=== PATIENT | female | born 1980 | race Caucasian/White ===

== ENCOUNTER 2019-12-07 20:29 | Emergency (ER) | payer OTHER ==
[2019-12-07 20:44] VITALS: BP 104/64; PULSE 68; TEMP 97.4; BMI 24.9
[2019-12-07] MEDS ORDERED: SODIUM CHLORIDE 0.9% 500 ML INFUS.BAG IV ONE (21:38)
[2019-12-07] MEDS ORDERED: ONDANSETRON 4 MG/2 ML VIAL IVPUSH ONE (21:38)
[2019-12-07] MEDS ORDERED: FAMOTIDINE 20 MG/50 ML IVPB 20 MG/50 ML MG IVPB ONE ×2 (22:01→22:05)
[2019-12-07 22:02] LABS: BASO % 0.5 % (0-2.0); EOS % 1.7 % (0-4.5); HEMATOCRIT 39.5 % (32.4-45.2); HEMOGLOBIN 13.7 GM/dL (10.7-15.3); LYMPH % 26.3 % (8-40); MCH 32.2 pg (25.7-33.7); MCHC 34.8 g/dl (32.0-36.0); MEAN CELL VOLUME 92.5 fl (80-96); MEAN PLT VOLUME 9.4 fl (7.5-11.1); MONO % 5.7 % (3.8-10.2); NEUT % 65.8 % (42.8-82.8); PLATELET COUNT 205 K/MM3 (134-434); RBC 4.26 M/mm3 (3.60-5.2); RDW 13.6 % (11.6-15.6); WHITE BLOOD COUNT 9.1 K/mm3 (4.0-10.0)
[2019-12-07 22:16] LABS: URINE APPEARANCE CLEAR; URINE BILIRUBIN NEGATIVE (NEGATIVE); URINE COLOR YELLOW; URINE GLUCOSE (UA) NEGATIVE (NEGATIVE); URINE KETONE NEGATIVE (NEGATIVE); URINE LEUK ESTERASE NEGATIVE (NEGATIVE); URINE NITRITE NEGATIVE (NEGATIVE); URINE PROTEIN NEGATIVE (NEGATIVE); URINE UROBILINOGEN 0.2 mg/dL (0.2-1.0)
[2019-12-07 22:39] LABS: ALBUMIN 3.9 g/dl (3.4-5.0); BILIRUBIN,TOTAL 0.2 mg/dL (0.2-1); CALCIUM 9.2 mg/dL (8.5-10.1); CREATININE 0.6 mg/dL (0.55-1.3); POTASSIUM 4.1 mmol/L (3.5-5.1); TOT PROT 7.4 g/dl (6.4-8.2)
--- NOTE | 2019-12-07 22:40 | PDOC ---
History of Present Illness - General Chief Complaint: Nausea/Vomiting Stated Complaint: NAUSEA/VOMITING Time Seen by Provider: 12/07/19 21:20 History Source: Patient Exam Limitations: No Limitations - History of Present Illness Initial Comments: 12/07/19 22:36 Patient is a 39-year-old female G5, P4 LMP 10/15/2019 here with complaints of nausea and vomiting. States the nausea started 2 weeks ago and vomiting started 1 week ago. She is 7 weeks and has not had any OB care states her symptoms are associated with some lower abdominal pain and lower back described as crampy 6/10 for about 3 weeks. States she was seen by her doctor 3 weeks ago and diagnosed with UTI and was prescribed antibiotics for 21 days. She did not complete this course but stopped the antibiotics 1 week ago. She denies any fever, chills, dysuria, vaginal bleeding. PMD: [facility] PMHX: as above PSOCHX: neg etoh, drug, cig ALL: NKDA Review of Systems: GENERAL/CONSTITUTIONAL: No fever or chills. No weakness. No weight change. HEAD, EYES, EARS, NOSE AND THROAT: No change in vision. No ear pain or discharge. No sore throat. CARDIOVASCULAR: No chest pain or shortness of breath. RESPIRATORY: No cough, wheezing, or hemoptysis. GASTROINTESTINAL: No nausea, vomiting, diarrhea or constipation. No rectal bleeding. GENITOURINARY: No dysuria, frequency, or change in urination. MUSCULOSKELETAL: No joint or muscle swelling or pain. No neck (+) back pain. SKIN AND BREASTS: No rash or easy bruising. NEUROLOGIC: No headache, vertigo, loss of consciousness, or loss of sensation. PSYCHIATRIC: No depression or anxiety. ENDOCRINE: No increased thirst. No abnormal weight change. HEMATOLOGIC/LYMPHATIC: No anemia, easy bleeding, or history of blood clots. ALLERGIC/IMMUNOLOGIC: No hives or skin allergy. No latex allergy. GENERAL: [The patient is awake, alert, and fully oriented, in acute distress- actively vomiting.] HEAD: [Normal with no signs of trauma.] EYES: [Pupils equal, round and reactive to light, extraocular movements intact, sclera anicteric, conjunctiva clear.] ENT: [Ears normal, nares patent, oropharynx clear without exudates. Moist mucous membranes.] NECK: [Normal range of motion, supple without lymphadenopathy, JVD, or masses.] LUNGS: [Breath sounds equal, clear to auscultation bilaterally. No wheezes, and no crackles.] HEART: [Regular rate and rhythm, normal S1 and S2 without murmur, rub.] ABDOMEN: [Soft, (+) tenderness lower abd, normoactive bowel sounds. No guarding, no rebound. No masses.] BACK: tenderness paraspinal EXTREMITIES: [Normal range of motion, no edema. No clubbing or cyanosis. No cords, erythema, or tenderness.] NEUROLOGICAL: [Cranial nerves II through XII grossly intact. Normal speech, normal gait.] PSYCH: [Normal mood, normal affect.] SKIN: [Warm, Dry, normal turgor, no rashes or lesions noted.] Past History - Medical History Allergies/Adverse Reactions: Allergies Allergy/AdvReac Type Severity Reaction Status Date / Time No Known Allergies Allergy Verified 09/23/12 10:55 Home Medications: Ambulatory Orders No Home Medications 0 dose .ROUTE UTDICT 09/19/12 Ibuprofen [Motrin] 400 mg PO QID PRN #30 tablet 09/21/12 Oxycodone HCl/Acetaminophen [Percocet 5-325 mg Tablet] 1 - 2 tab PO Q6H #15 ta blet 09/21/12 Ondansetron [Zofran *Odt*] 4 mg SL TID #21 od.tablet 12/07/19 Asthma: Yes COPD: No - Reproductive History Is Patient Now?: Yes (#): 5 Para: 4 Ectopic : No (NO HX) Therapeutic (s) & number: No Spontaneous : 0 - Psycho-Social/Smoking History Smoking Status: No Smoking History: Never smoked Number of Cigarettes Smoked Daily: 0 - Substance Abuse Hx (Audit-C & DAST Scrn) How often the patient has a drink containing alcohol: Never Score: In Men: 4 or > Positive; In Women: 3 or > Positive: 0 Screen Result (Pos requires Nsg. Audit-10AR): Negative In the last yr the pt used illegal drug/Rx for NonMed reason: No Score: Yes response is considered Positive: 0 Screen Result (Positive result requires Nsg. DAST-10): Negative *Physical Exam - Vital Signs Last Vital Signs Temp Pulse Resp BP Pulse Ox 97.4 F L 68 19 104/64 99 12/07/19 20:41 12/07/19 20:41 12/07/19 20:41 12/07/19 20:41 12/07/19 20:41 ED Treatment Course - LABORATORY CBC & Chemistry Diagram: 12/07/19 21:50 12/07/19 21:50 - ADDITIONAL ORDERS Additional order review: Laboratory Results 12/07/19 22:00 Urine Color Yellow Urine Appearance Clear Urine pH 6.0 Ur Specific [place] 1.018 Urine Protein Negative Urine Glucose (UA) Negative Urine Ketones Negative Urine Blood Negative Urine Nitrite Negative Urine Bilirubin Negative Urine Urobilinogen 0.2 Ur Leukocyte Esterase Negative 12/07/19 21:50 RBC 4.26 MCV 92.5 MCHC 34.8 RDW 13.6 MPV 9.4 Neutrophils % 65.8 Lymphocytes % 26.3 Monocytes % 5.7 Eosinophils % 1.7 D Basophils % 0.5 - RADIOLOGY Radiology Studies Ordered: Category Date Time Status <14WKS US [US] Stat Ultrasound 12/07/19 21:38 Ordered - Medications Given in the ED: ED Medications Discontinued Medications Generic Name Dose Route Start Last Admin Trade Name Freq PRN Reason Stop Dose Admin Famotidine/Sodium Chloride 20 mg in 50 mls @ 100 mls/hr 12/07/19 22:01 0 12/07/19 22:18 Pepcid 20 Mg Premixed Ivpb - IVPB 12/07/19 22:30 100 mls/hr ONCE ONE Administration Ondansetron HCl 4 mg 12/07/19 21:38 12/07/19 22:01 Zofran Injection IVPUSH 12/07/19 21:39 4 mg ONCE ONE Administration Sodium Chloride 1,000 ml 12/07/19 21:38 12/07/19 22:01 Normal Saline - IV 12/07/19 21:39 1,000 ml ONCE ONE Administration Medical Decision Making - Medical Decision Making 12/07/19 22:36 Patient is a 39-year-old female G5, P4 LMP 10/15/2019 here with complaints of nausea and vomiting. States the nausea started 2 weeks ago and vomiting started 1 week ago. She is 7 weeks and has not had any OB care states her symptoms are associated with some lower abdominal pain and lower back described as crampy 6/10 for about 3 weeks. States she was seen by her doctor 3 weeks ago and diagnosed with UTI and was prescribed antibiotics for 21 days. She did not complete this course but stopped the antibiotics 1 week ago. She denies any fever, chills, dysuria. Symptoms consistent with vomiting in early . Will get labs rule out UTI rule out dehydration IV fluids Pepcid, Zofran Ultrasound obstetrical Reassess 12/07/19 23:24 Patient Full Name: GLORIA DUVAL Patient Accession No: [id number] Patient : [id number] Reason for Exam: lower abd pain Referring Physician: Patient Name: MUKUND CASTRO THIS IS A PRELIMINARY REPORT DATE OF SERVICE: 2019-12-07 22:20:28 IMAGES: 31 EXAM: OB ULTRASOUND and duplex ovaries HISTORY: Lower abdominal pain COMPARISON: None. FINDINGS: Uterus measures 9.9 x 6.5 x 8.1 cm. A single live intrauterine is seen to be present 7 weeks 2 days . Estimated due date is 07/23/2020 . heart rate measures 158 beats per minute. There is a yolk sac present. The right ovary measures 3.8 x 3 x 2.4 cm and the left ovary measures 2.1 x 1.5 x 1.8 cm. Right ovarian cyst measures 1.9 x 1.5 x 1.5 cm. DUPLEX OVARIES: There is bilateral ovarian blood flow with demonstration of arterial and venous waveforms. IMPRESSION: 1. Single live intrauterine consistent with a 7 weeks 2 days gestation with an estimated due date of 07/23/2020. THIS DOCUMENT HAS BEEN ELECTRONICALLY SIGNED Mirela Flores MD 12/07/2019 23:05 MAHESH Watson. Please call Imaging Licensed Massage Therapist [phone] ([phone]) with questions. INTERPRETING RADIOLOGIST: Mirela Flores MD Electronically Signed: Dec 07, 2019 11:07PM EDT Labs reviewed no acute findings Will p.o. challenge and if tolerating discharge home. Will discharge with instructions to follow-up with PMD. I discussed the physical exam findings, ancillary test results and final diagnoses with the patient. I answered all of the patient's questions. The p atient was satisfied with the care received and felt comfortable with the discharge plan and treatment plan. The Patient agrees to follow up with the primary care physician within 24-72 hours. Discharge - Discharge Information Problems reviewed: Yes Clinical Impression/Diagnosis: Hyperemesis gravidarum Condition: Stable Disposition: HOME - Additional Discharge Information Prescriptions: Ondansetron [Zofran *Odt*] 4 mg SL TID #21 od.tablet - Follow up/Referral - Patient Discharge Instructions Patient Printed Discharge Instructions: DI for Hyperemesis Gravidarum Additional Instructions: Your Discharge Instructions: You must call primary care physician within 24 hours to arrange follow-up. Return to the Emergency Department with any new, persistent or worsening symptoms, for fever, chills, SOB, dizziness or any other concerning changes that may occur. Follow-up with your OB at [facility] for further evaluation and treatment. - Post Discharge Activity
== END 2019-12-08 00:27 | disposition home or self-care (01) ==
LOC: JER 20:29
PROC: 3E033GC Introduction of Other Therapeutic Substance into Peripheral Vein, Percutaneous Approach (ICD-10-PCS; principal; 2019-12-07)
DX: O21.1 Hyperemesis gravidarum with metabolic disturbance (principal)
CPT/HCPCS: 36415; 76801-TC; 80053; 81003; 83690; 84702; 85025; 99284-25

== ENCOUNTER 2020-04-17 10:57 | Emergency (ER) | payer OTHER ==
[2020-04-17 11:20] VITALS: BP 102/63; PULSE 102; TEMP 98.2; BMI 26.6
== END 2020-04-17 13:57 | disposition home or self-care (01) ==
LOC: JER 10:57
DX: U07.1 COVID-19 (principal)
CPT/HCPCS: 99283-25; C9803; U0003

== ENCOUNTER 2020-04-27 13:55 | Emergency (ER) | payer OTHER ==
[2020-04-27 14:20] VITALS: BMI 26.5
[2020-04-27] MEDS ORDERED: ONDANSETRON 4 MG/2 ML VIAL ONE ×2 (14:50→15:36)
[2020-04-27] MEDS ORDERED: PANTOPRAZOLE SODIUM 40 MG VIAL ONE (14:50)
[2020-04-27] MEDS ORDERED: SODIUM CHLORIDE 1,000 ML IV STA (15:19)
[2020-04-27] MEDS ORDERED: MORPHINE SULFATE 2 MG/ML VIAL ONE (16:04)
[2020-04-27 16:29] LABS: POTASSIUM 4.1 mmol/L (3.5-5.1)
[2020-04-27] MEDS ORDERED: ONDANSETRON 4 MG/2 ML VIAL IVPUSH ONE (16:29)
[2020-04-27 16:31] LABS: ALBUMIN 2.5 g/dl (3.4-5.0); BLOOD UREA NITROGEN 6.6 mg/dL (7-18); CALCIUM 7.8 mg/dL (8.5-10.1)
[2020-04-27 16:34] LABS: CREATININE 0.4 mg/dL (0.55-1.3)
[2020-04-27 16:35] LABS: BILIRUBIN,TOTAL 0.6 mg/dL (0.2-1); TOT PROT 6.2 g/dl (6.4-8.2)
[2020-04-27 16:42] LABS: BASO % 0.1 % (0-2.0); HEMOGLOBIN 11.8 GM/dL (10.7-15.3); LYMPH % 8.3 % (8-40); MCHC 34.7 g/dl (32.0-36.0); MEAN CELL VOLUME 92.2 fl (80-96); MEAN PLT VOLUME 9.3 fl (7.5-11.1); MONO % 4.5 % (3.8-10.2); NEUT % 87.1 % (42.8-82.8); PLATELET COUNT 136 K/MM3 (134-434); RBC 3.69 M/mm3 (3.60-5.2); RDW 13.4 % (11.6-15.6)
[2020-04-27 17:58] LABS: URINE APPEARANCE CLEAR; URINE BILIRUBIN NEGATIVE (NEGATIVE); URINE COLOR YELLOW; URINE GLUCOSE (UA) NEGATIVE (NEGATIVE); URINE KETONE NEGATIVE (NEGATIVE); URINE LEUK ESTERASE NEGATIVE (NEGATIVE); URINE NITRITE NEGATIVE (NEGATIVE); URINE PROTEIN NEGATIVE (NEGATIVE)
[2020-04-28 00:11] VITALS: BP 103/62; PULSE 78; TEMP 98.8
== END 2020-04-28 00:15 | disposition short-term general hospital (02) ==
LOC: JER 13:55
PROC: 3E033GC Introduction of Other Therapeutic Substance into Peripheral Vein, Percutaneous Approach (ICD-10-PCS; principal; 2020-04-27)
PROC: 3E0337Z Introduction of Electrolytic and Water Balance Substance into Peripheral Vein, Percutaneous Approach (ICD-10-PCS; 2020-04-27)
DX: O98.53 Other viral diseases complicating the puerperium (principal); U07.1 COVID-19; Z3A.29 29 weeks gestation of pregnancy
CPT/HCPCS: 36415; 76700-TC; 76801-TC; 80053; 81003; 82728; 83615; 85025; 85379; 85384; 86140; 87086; 99285-25; C9803; U0003

== ENCOUNTER 2022-09-25 10:42 | Emergency (ER) | payer OTHER ==
[2022-09-25 10:48] VITALS: BP 106/72; PULSE 71; RESP 18; TEMP 97.9; BMI 29.2
[2022-09-25] MEDS ORDERED: ACETAMINOPHEN 500 MG TABLET (FP) PO ONE (11:26)
[2022-09-25] MEDS ORDERED: LIDOCAINE 5% TOPICAL PATCH TP ONE (11:27)
[2022-09-25] MEDS ORDERED: ACETAMINOPHEN 325 MG TABLET (FP) ONE (11:38)
[2022-09-25] MEDS ORDERED: LIDOCAINE 5% TOPICAL PATCH ONE (11:38)
[2022-09-25] MEDS ORDERED: LIDOCAINE PATCH REMOVAL MC ONE (22:00)
== END 2022-09-25 13:40 | disposition home or self-care (01) ==
LOC: JER 10:42
DX: R89.1 Abnormal level of hormones in specimens from other organs, systems and tissues (principal); M54.50 Low back pain, unspecified
CPT/HCPCS: 36415; 84702; 99283-25

== ENCOUNTER 2023-07-09 11:41 | Emergency (ER) | payer OTHER ==
[2023-07-09 11:54] VITALS: RESP 18; TEMP 98; BMI 29.2
[2023-07-09] MEDS ORDERED: ACETAMINOPHEN INJECTION 100 ML IVPB ONE (13:43)
[2023-07-09 13:47] LABS: BASO % 0.6 % (0-2.0); EOS % 2.8 % (0-4.5); LYMPH % 22.2 % (8-40); MCH 30.8 pg (25.7-33.7); MCHC 33.4 g/dl (32.0-36.0); MEAN CELL VOLUME 92.1 fl (80-96); MEAN PLT VOLUME 8.8 fl (7.5-11.1); MONO % 8.6 % (3.8-10.2); NEUT % 65.8 % (42.8-82.8); PLATELET COUNT 236 10^3/uL (134-434); RBC 4.24 M/mm3 (3.60-5.2); WHITE BLOOD COUNT 7.9 K/mm3 (4.0-10.0)
[2023-07-09] MEDS: ACETAMINOPHEN 1000 MG/100 ML BAG IVPB ONE (13:48)
[2023-07-09 13:53] LABS: URINE APPEARANCE CLEAR; URINE BILIRUBIN NEGATIVE (NEGATIVE); URINE COLOR YELLOW; URINE GLUCOSE (UA) NEGATIVE (NEGATIVE); URINE KETONE NEGATIVE (NEGATIVE); URINE LEUK ESTERASE NEGATIVE (NEGATIVE); URINE NITRITE NEGATIVE (NEGATIVE); URINE PROTEIN NEGATIVE (NEGATIVE); URINE UROBILINOGEN 0.2 mg/dL (0.2-1.0)
[2023-07-09 14:15] LABS: POTASSIUM 3.9 mmol/L (3.5-5.1)
[2023-07-09 14:17] LABS: CALCIUM 8.3 mg/dL (8.5-10.1)
[2023-07-09 14:18] LABS: ALBUMIN 3.6 g/dl (3.4-5.0); BLOOD UREA NITROGEN 12.2 mg/dL (7-18); MAGNESIUM 2.1 mg/dL (1.8-2.4)
[2023-07-09 14:21] LABS: CREATININE 0.8 mg/dL (0.55-1.3)
[2023-07-09 14:22] LABS: BILIRUBIN,TOTAL 0.5 mg/dL (0.2-1); TOT PROT 6.8 g/dl (6.4-8.2)
[2023-07-09 15:54] VITALS: BP 101/64; PULSE 66
== END 2023-07-09 16:23 | disposition home or self-care (01) ==
LOC: JER 11:41
PROC: 3E033NZ Introduction of Analgesics, Hypnotics, Sedatives into Peripheral Vein, Percutaneous Approach (ICD-10-PCS; principal; 2023-07-09)
DX: R52 Pain, unspecified (principal); R20.2 Paresthesia of skin; R35.0 Frequency of micturition; R10.30 Lower abdominal pain, unspecified; Z20.822 Contact with and (suspected) exposure to COVID-19
CPT/HCPCS: 0241U-QW; 36415; 80053; 81003; 82550; 83735; 84703; 85025; 86850; 86900; 86901; 87086; 93005; 93010; 99284-25; J0131

== ENCOUNTER 2023-09-15 11:08 | Emergency (ER) | payer OTHER ==
[2023-09-15 11:20] VITALS: BP 90/53; PULSE 78; RESP 20; TEMP 97.6; BMI 27.6
== END 2023-09-15 12:38 | disposition home or self-care (01) ==
LOC: JERFT 11:08
DX: R21 Rash and other nonspecific skin eruption (principal)
CPT/HCPCS: 99283-25

== ENCOUNTER 2023-10-28 22:13 | Observation (INO) | payer OTHER ==
[2023-10-28 23:01] LABS: BASO % 0.5 % (0-2.0); EOS % 1.6 % (0-4.5); HEMATOCRIT 38.6 % (32.4-45.2); HEMOGLOBIN 13.5 GM/dL (10.7-15.3); LYMPH % 21.3 % (8-40); MCH 31.8 pg (25.7-33.7); MCHC 35.1 g/dl (32.0-36.0); MEAN CELL VOLUME 90.8 fl (80-96); MEAN PLT VOLUME 9.4 fl (7.5-11.1); MONO % 7.4 % (3.8-10.2); NEUT % 69.2 % (42.8-82.8); PLATELET COUNT 224 10^3/uL (134-434); RBC 4.25 M/mm3 (3.60-5.2); RDW 13.1 % (11.6-15.6); WHITE BLOOD COUNT 10.4 K/mm3 (4.0-10.0)
[2023-10-28 23:10] LABS: INR 1.04 (0.83-1.09); PROTHROMBIN TIME (PATIENT) 11.7 SEC (9.7-13.0)
[2023-10-28 23:13] LABS: ACTIVATED PTT 35.9 SECONDS (25.2-36.5)
[2023-10-28 23:26] LABS: POTASSIUM 3.8 mmol/L (3.5-5.1)
[2023-10-28] MEDS ORDERED: MAG HYDROX/AL HYDROX/SIMETH 30 ML UNIT-DOSE CUP ONE (23:26)
[2023-10-28] MEDS ORDERED: SIMETHICONE 80 MG TAB.CHEW (FP) ONE (23:26)
[2023-10-28 23:28] LABS: CALCIUM 8.9 mg/dL (8.5-10.1)
[2023-10-28] MEDS: MAG HYDROX/AL HYDROX/SIMETH -MYLANTA- ORAL SUSPENSION PO ONE (23:28)
[2023-10-28] MEDS: SIMETHICONE 80 MG TAB.CHEW (FP) PO ONE (23:28)
[2023-10-28 23:29] LABS: ALBUMIN 3.9 g/dl (3.4-5.0); BLOOD UREA NITROGEN 14.4 mg/dL (7-18)
[2023-10-28] MEDS ORDERED: ACETAMINOPHEN INJECTION 100 ML IVPB ONE (23:29)
[2023-10-28] MEDS ORDERED: MORPHINE SULFATE 2 MG/ML SYRINGE ONE (23:29)
[2023-10-28 23:32] LABS: CREATININE 0.9 mg/dL (0.55-1.3)
[2023-10-28 23:33] LABS: BILIRUBIN,TOTAL 0.3 mg/dL (0.2-1); TOT PROT 7.1 g/dl (6.4-8.2)
[2023-10-28] MEDS: SODIUM CHLORIDE 0.9% 500 ML INFUS.BAG IV ONE (23:35)
[2023-10-28] MEDS: ACETAMINOPHEN 1000 MG/100 ML BAG IVPB ONE (23:35)
[2023-10-28] MEDS: morphine CARPU-JECT 2 MG/1 ML DISP.SYRIN IVPUSH ONE (23:35)
[2023-10-29 00:53] LABS: EPI CELLS 3 /uL (0-25.1); HYALINE CASTS 0 /uL (0-3.1); URINE APPEARANCE CLEAR; URINE BACTERIA >9,000 /uL (0-1359); URINE BILIRUBIN NEGATIVE (NEGATIVE); URINE COLOR YELLOW; URINE GLUCOSE (UA) NEGATIVE (NEGATIVE); URINE KETONE NEGATIVE (NEGATIVE); URINE LEUK ESTERASE NEGATIVE (NEGATIVE); URINE NITRITE POSITIVE (NEGATIVE); URINE PROTEIN NEGATIVE (NEGATIVE); URINE RBC 3 /uL (0-23.9); URINE UROBILINOGEN 0.2 mg/dL (0.2-1.0); URINE WBC 13 /uL (0-25.8)
[2023-10-29] MEDS ORDERED: CEPHALEXIN MONOHYDRATE 500 MG CAPSULE (UD) ONE (01:11)
[2023-10-29] MEDS: CEPHALEXIN MONOHYDRATE 500 MG CAPSULE (UD) PO ONE (01:13)
[2023-10-29] MEDS: ASPIRIN 81 MG CHEWABLE TABLETS PO ONE (02:22)
[2023-10-29] MEDS ORDERED: ASPIRIN 325 MG TABLET ONE (02:34)
[2023-10-29] MEDS: ASPIRIN 325 MG TABLET PO ONE (02:38)
[2023-10-29] MEDS: SODIUM CHLORIDE 1,000 ML IV STA (04:11)
[2023-10-29] MEDS ORDERED: ACETAMINOPHEN 325 MG TABLET (FP) PO PRN (04:14)
[2023-10-29] MEDS ORDERED: KETOROLAC TROMETHAMINE 30 MG/1 ML VIAL ONE (04:33)
[2023-10-29] MEDS: KETOROLAC TROMETHAMINE 30 MG/1 ML VIAL IVPUSH ONE (04:37)
[2023-10-29 07:49] LABS: BASO % 0.6 % (0-2.0); EOS % 3.2 % (0-4.5); HEMATOCRIT 35.6 % (32.4-45.2); HEMOGLOBIN 12.2 GM/dL (10.7-15.3); LYMPH % 29.8 % (8-40); MCH 31.4 pg (25.7-33.7); MCHC 34.3 g/dl (32.0-36.0); MEAN CELL VOLUME 91.5 fl (80-96); MEAN PLT VOLUME 9.5 fl (7.5-11.1); MONO % 9.1 % (3.8-10.2); NEUT % 57.3 % (42.8-82.8); PLATELET COUNT 189 10^3/uL (134-434); RBC 3.89 M/mm3 (3.60-5.2); RDW 13.3 % (11.6-15.6); WHITE BLOOD COUNT 7.3 K/mm3 (4.0-10.0)
[2023-10-29 07:55] LABS: POTASSIUM 4.3 mmol/L (3.5-5.1)
[2023-10-29 08:06] LABS: CALCIUM 7.6 mg/dL (8.5-10.1)
[2023-10-29 08:07] LABS: ALBUMIN 3.2 g/dl (3.4-5.0); MAGNESIUM 1.9 mg/dL (1.8-2.4)
[2023-10-29 08:10] LABS: CREATININE 0.5 mg/dL (0.55-1.3)
[2023-10-29 08:11] LABS: BILIRUBIN,TOTAL 0.3 mg/dL (0.2-1)
[2023-10-29] MEDS ORDERED: ASPIRIN COATED 81 MG TABLET.EC ONE (09:59)
[2023-10-29] MEDS ORDERED: ENOXAPARIN NA (PORCINE) 40 MG/0.4 ML DISP.SYRIN SQ ONE (10:00)
[2023-10-29] MEDS: ASPIRIN 81 MG CHEWABLE TABLETS PO SCH (10:05)
[2023-10-29] MEDS: ENOXAPARIN NA (PORCINE) 40 MG/0.4 ML DISP.SYRIN SQ SCH (10:05)
[2023-10-29] MEDS ORDERED: MORPHINE SULFATE 2 MG/ML SYRINGE IVPUSH PRN (12:12)
[2023-10-29] MEDS: LACTATED RINGERS SOLUTION 1,000 ML/1,000 ML INFUS.BAG IV SCH (12:44)
[2023-10-29 16:47] VITALS: RESP 18; BMI 27.6
[2023-10-29] MEDS: ACETAMINOPHEN 500 MG TABLET (FP) PO PRN (16:56)
[2023-10-29] MEDS: ATORVASTATIN CA 80 MG TABLET (FP) PO SCH (21:26)
[2023-10-30 09:52] LABS: HEMOGLOBIN 12.8 GM/dL (10.7-15.3); MCH 31.4 pg (25.7-33.7); MCHC 34.6 g/dl (32.0-36.0); MEAN CELL VOLUME 90.6 fl (80-96); MEAN PLT VOLUME 9.1 fl (7.5-11.1); PLATELET COUNT 193 10^3/uL (134-434); RBC 4.09 M/mm3 (3.60-5.2); RDW 13.6 % (11.6-15.6); WHITE BLOOD COUNT 6.3 K/mm3 (4.0-10.0)
[2023-10-30 10:13] LABS: POTASSIUM 4.1 mmol/L (3.5-5.1)
[2023-10-30 10:21] LABS: CALCIUM 8.5 mg/dL (8.5-10.1)
[2023-10-30 10:22] LABS: BLOOD UREA NITROGEN 9.7 mg/dL (7-18); MAGNESIUM 2.1 mg/dL (1.8-2.4)
[2023-10-30 10:25] LABS: CREATININE 0.6 mg/dL (0.55-1.3); PHOSPHOROUS 2.8 mg/dL (2.5-4.9)
[2023-10-30] MEDS ORDERED: ALBUTEROL SO4 HFA INHALER IH PRN (18:59)
[2023-10-31 09:23] LABS: HEMATOCRIT 38.1 % (32.4-45.2); HEMOGLOBIN 13.2 GM/dL (10.7-15.3); MCH 31.2 pg (25.7-33.7); MCHC 34.6 g/dl (32.0-36.0); MEAN CELL VOLUME 90.2 fl (80-96); MEAN PLT VOLUME 9.2 fl (7.5-11.1); PLATELET COUNT 212 10^3/uL (134-434); RBC 4.22 M/mm3 (3.60-5.2); RDW 13.4 % (11.6-15.6); WHITE BLOOD COUNT 7.9 K/mm3 (4.0-10.0)
[2023-10-31 09:32] VITALS: PULSE 89; TEMP 98.9
[2023-10-31 09:37] LABS: POTASSIUM 4.5 mmol/L (3.5-5.1)
[2023-10-31 09:45] LABS: ALBUMIN 3.4 g/dl (3.4-5.0)
[2023-10-31 09:46] LABS: BLOOD UREA NITROGEN 10.5 mg/dL (7-18)
[2023-10-31 09:47] LABS: BILIRUBIN,TOTAL 0.4 mg/dL (0.2-1); CALCIUM 8.7 mg/dL (8.5-10.1); TOT PROT 6.5 g/dl (6.4-8.2)
[2023-10-31 09:49] LABS: CREATININE 0.7 mg/dL (0.55-1.3); PHOSPHOROUS 4.1 mg/dL (2.5-4.9)
[2023-10-31 09:52] LABS: MAGNESIUM 1.9 mg/dL (1.8-2.4)
[2023-10-31] MEDS: KETOROLAC TROMETHAMINE 15 MG/ML VIAL IVPUSH PRN (10:34)
[2023-10-31 15:41] VITALS: BP 109/66
== END 2023-10-31 16:04 | disposition home or self-care (01) ==
LOC: JER 22:13 → JERBED 10-29 01:49 → J6S 10-29 16:25
PROVIDERS: ADMIT Internal Medicine; ATTEND Internal Medicine
PROC: 3E033NZ Introduction of Analgesics, Hypnotics, Sedatives into Peripheral Vein, Percutaneous Approach (ICD-10-PCS; principal; 2023-10-29)
PROC: 3E0333Z Introduction of Anti-inflammatory into Peripheral Vein, Percutaneous Approach (ICD-10-PCS; 2023-10-29)
PROC: 3E0337Z Introduction of Electrolytic and Water Balance Substance into Peripheral Vein, Percutaneous Approach (ICD-10-PCS; 2023-10-29)
DX: M25.512 Pain in left shoulder (principal); R07.89 Other chest pain; M79.602 Pain in left arm; N39.0 Urinary tract infection, site not specified; J45.909 Unspecified asthma, uncomplicated; G43.909 Migraine, unspecified, not intractable, without status migrainosus
CPT/HCPCS: 36415; 70450-TC; 70496-TC; 70498-TC; 71045-TC-FY; 71250-TC; 71275-TC; 72141-TC; 73030-TC-LT-FY; 80048; 80053; 80061; 81003; 82550; 82962; 83036; 83735; 84100; 84484; 85025; 85027; 85379; 85610; 85730; 86850; 86900; 86901; 87086; 87186; 93005; 93010; 93306-TC; 96361; 96374; 96375; 96376; 99285-25; G0378; J0131

== ENCOUNTER 2024-06-07 11:19 | Emergency (ER) | payer OTHER ==
[2024-06-07 11:30] VITALS: BP 98/53; PULSE 75; RESP 20; TEMP 97.5; BMI 28.6
[2024-06-07 12:14] LABS: HCG,QUALITATIVE URINE Positive
[2024-06-07 12:18] LABS: EPI CELLS >36 /uL (0-25.1); HYALINE CASTS 1 /uL (0-3.1); URINE APPEARANCE CLEAR; URINE BACTERIA 5495 /uL (0-1359); URINE BILIRUBIN NEGATIVE (NEGATIVE); URINE COLOR YELLOW; URINE GLUCOSE (UA) NEGATIVE (NEGATIVE); URINE KETONE TRACE (NEGATIVE); URINE LEUK ESTERASE 1+ (NEGATIVE); URINE NITRITE NEGATIVE (NEGATIVE); URINE PROTEIN NEGATIVE (NEGATIVE); URINE RBC 16 /uL (0-23.9); URINE UROBILINOGEN 0.2 mg/dL (0.2-1.0); URINE WBC 60 /uL (0-25.8)
[2024-06-07 12:21] LABS: HEMOGLOBIN 12.9 GM/dL (10.7-15.3); MCH 30.9 pg (25.7-33.7); MCHC 33.9 g/dl (32.0-36.0); MEAN CELL VOLUME 91.1 fl (80-96); MEAN PLT VOLUME 8.1 fl (7.5-11.1); PLATELET COUNT 210 10^3/uL (134-434); RBC 4.17 M/mm3 (3.60-5.2); RDW 13.7 % (11.6-15.6)
[2024-06-07 12:41] LABS: CALCIUM 8.6 mg/dL (8.5-10.1); POTASSIUM 3.8 mmol/L (3.5-5.1)
[2024-06-07 12:42] LABS: ALBUMIN 3.6 g/dl (3.4-5.0); BLOOD UREA NITROGEN 10.4 mg/dL (7-18)
[2024-06-07 12:45] LABS: CREATININE 0.6 mg/dL (0.55-1.3)
[2024-06-07 12:47] LABS: BILIRUBIN,TOTAL 0.4 mg/dL (0.2-1); TOT PROT 6.6 g/dl (6.4-8.2)
[2024-06-07 19:26] LABS: HIV INTERPRETATION NEGATIVE (NEGATIVE)
== END 2024-06-07 14:57 | disposition home or self-care (01) ==
LOC: JER 11:19
DX: O09.521 Supervision of elderly multigravida, first trimester (principal); O26.891 Other specified pregnancy related conditions, first trimester; R10.2 Pelvic and perineal pain; R10.32 Left lower quadrant pain; Z3A.09 9 weeks gestation of pregnancy
CPT/HCPCS: 36415; 76817-TC; 80053; 81003; 84702; 84703; 85027; 86803; 87086; 87186; 87389; 99284-25